=== PATIENT | male | born 1995 | race Caucasian/White ===

== ENCOUNTER 2020-03-29 18:21 | Emergency (ER) | payer OTHER ==
[2020-03-29] MEDS ORDERED: Ibuprofen 200 MG TAB ONE (18:42)
[2020-03-29] MEDS ORDERED: AMOXicillin 250 MG CAP ONE (18:42)
[2020-03-29] MEDS ORDERED: Acetaminophen/Codeine 30-300mg Tablet ONE (18:42)
== END 2020-03-29 18:50 | disposition home or self-care (01) ==
LOC: BURERS 18:21
DX: K05.219 Aggressive periodontitis, localized, unspecified severity (principal); B86 Scabies; F17.210 Nicotine dependence, cigarettes, uncomplicated
CPT/HCPCS: 99282

== ENCOUNTER 2020-04-16 16:43 | Emergency (ER) | payer OTHER ==
[2020-04-17 12:54] LABS: SARS-CoV-2 MS2 Positive; SARS-CoV-2 N Gene Negative; SARS-CoV-2 S Gene Negative; SARS-CoV-2 by NAA Not Detected (NotDetected); SARS-CoV-2 orf1ab Negative
== END 2020-04-16 17:35 | disposition home or self-care (01) ==
LOC: BURERS 16:43
DX: R05 Cough (principal); Z20.828 Contact with and (suspected) exposure to other viral communicable diseases; F17.210 Nicotine dependence, cigarettes, uncomplicated
CPT/HCPCS: 87635; 99283; U0003

== ENCOUNTER 2020-04-29 18:24 | Emergency (ER) | payer OTHER ==
--- NOTE | 2020-04-29 21:27 | RAD ---
RIGHT GREAT TOE 04/29/20 No major fracture or dislocation was seen. The joints appear normal. On the oblique view there was a question of a subtle line at the distal end of the proximal phalanx medially, on the inside of great toe. This area looks normal on all other views. I am not convinced that this is a longitudinal fractu re, however, if this were the exact site of pain, it might be possible. Otherwise, the toe appears no rmal. IMPRESSION: Equivocal line in the distal end of the proximal phalanx, medial side, of the great toe. See above. Code T POS: HOME
== END 2020-04-29 19:10 | disposition home or self-care (01) ==
LOC: BURERS 18:24
DX: S93.502A Unspecified sprain of left great toe, initial encounter (principal); F17.210 Nicotine dependence, cigarettes, uncomplicated; W22.8XXA Striking against or struck by other objects, initial encounter
CPT/HCPCS: 99406

== ENCOUNTER 2020-05-15 12:11 | Emergency (ER) | payer OTHER ==
[2020-05-17 10:20] LABS: SARS-CoV-2 MS2 Positive; SARS-CoV-2 N Gene Negative; SARS-CoV-2 S Gene Negative; SARS-CoV-2 by NAA Not Detected (NotDetected); SARS-CoV-2 orf1ab Negative
== END 2020-05-15 12:40 | disposition home or self-care (01) ==
LOC: BURERS 12:11
DX: R05 Cough (principal); R51.9 Headache, unspecified; F17.210 Nicotine dependence, cigarettes, uncomplicated; Z20.828 Contact with and (suspected) exposure to other viral communicable diseases; Z71.6 Tobacco abuse counseling
CPT/HCPCS: 87635; 99406; U0003